=== PATIENT | female | born 1945 | race Caucasian/White ===

== ENCOUNTER 2016-09-16 02:10 | Inpatient (IN) ==
[2016-09-16] MEDS ORDERED: Ondansetron 4 MG/2 ML VIAL IVP ONE ×2 (02:38→05:39)
[2016-09-16] MEDS ORDERED: 0.9 % Sodium Chloride 1,000 ML IVC ONE (02:38)
[2016-09-16] MEDS ORDERED: *HR* Morphine 2 MG/ML SYRINGE IVP ONE (02:38)
[2016-09-16 03:28] LABS: Basophils % 0.3 %; Eosinophils # 0.1 K/mcL (0.0-0.6); Eosinophils % 0.8 %; Hematocrit 40.2 % (35.3-44.9); Hemoglobin 13.7 g/dL (11.5-15.4); Immature Granulocytes % 0.2 % (0-4); Lymphocytes # 1.8 K/mcL (0.6-4.6); Lymphocytes % 20.3 %; Mean Corpuscular HGB Conc 34.1 g/dL (31.6-35.5); Mean Corpuscular Hemoglobin 29.7 pg (28.0-33.3); Mean Platelet Volume 10.9 fL (9.4-12.4); Monocytes # 0.8 K/mcL (0.0-1.3); Monocytes % 9.2 %; Neutrophils # 6.1 K/mcL (1.6-8.9); Platelet Count 153 K/mcL (140-400); Red Blood Count 4.62 M/mcL (3.82-4.97); Segmented Neutrophils % 69.2 %
[2016-09-16] MEDS ORDERED: Tetracaine/Benzocaine/Butamben 200MG/SPRAY (100SPY/BOT) MM ONE (03:39)
[2016-09-16 03:44] LABS: Alanine Aminotransferase 101 Units/L (0-55); Albumin 3.5 g/dL (3.5-5.0); Albumin/Globulin Ratio 0.8 (1.1-2.2); Alkaline Phosphatase 66 Units/L (38-126); Amylase 59 Units/L (25-125); Aspartate Amino Transferase 74 Units/L (5-34); BUN/Creatinine Ratio 20 (6-26); Bilirubin,Direct 0.2 mg/dL (0.0-0.5); Bilirubin,Indirect 0.5 mg/dL (0.0-1.2); Bilirubin,Total 0.7 mg/dL (0.2-1.2); Blood Urea Nitrogen 19 mg/dL (7-20); Calcium 9.6 mg/dL (8.6-10.8); Carbon Dioxide 23 mEq/L (19-29); Chloride 105 mEq/L (98-109); Globulin 4.4 g/dL (2.4-3.5); Glucose 185 mg/dL (70-99); Lipase 25 Units/L (8-78); Osmolality,Calculated 297 (280-300); Potassium 3.9 mEq/L (3.5-4.5); Sodium 140 mEq/L (136-145); Total Protein 7.9 g/dL (6.0-8.3); eGFR For African Americans > 60 (> 60); eGFR For Non-African Americans 57 (> 60)
--- NOTE | 2016-09-16 03:44 | Emergency Department Note ---
Disposition Clinical Impression: Ileus Hematemesis Qualifiers: Nausea presence: with nausea Qualified Code(s): K92.0 - Hematemesis; R11.0 - Nausea GI bleed Qualifiers: GI bleed type/associated pathology: unspecified gastrointestinal hemorrhage type Qualified Code(s): K92.2 - Gastrointestinal hemorrhage, unspecified Disposition: Admitted As Inpatient Condition: Good Time of Disposition: 05:16 General Adult HPI - General Chief complaint: ED Abdominal Pain Stated complaint: belly pain Time Seen by Provider: 09/16/16 02:19 Source: patient Limitations: no limitations Nursing Notes Reviewed: Yes Vital Signs Reviewed: Yes - History of Present Illness HPI Narrative: Patient presents to the emergency room with acute onset of abdominal discomfort. She felt like she had bloating and gas. She has not had resolution of symptoms. She denies ever having any light this in the past. She has not been ill recently. She denies any cough cold congestion fevers or chills. Patient said the pain was getting worse and she decided come to the emergency room. 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: abdomen Radiation: non-radiation Pain Severity: moderate Pain Scale: 8 Quality: sharp, constant Consistency: Improving Improves with: nothing Worsens with: movement Associated symptoms: Reports: nausea/vomiting Treatments Prior to Arrival: none - Related Data Home Medications Medication Instructions Recorded Confirmed Aspirin 81 mg PO DAILY 09/16/16 09/16/16 Calcium Carbonate [Calcium] 500 mg PO DAILY 09/16/16 09/16/16 CloNIDine HCl 0.1 mg PO DAILY 09/16/16 09/16/16 Cyclosporine [Restasis] 1 drop OP DAILY 09/16/16 09/16/16 FLUoxetine HCl [Prozac] 20 mg PO DAILY 09/16/16 09/16/16 GlipiZIDE [Glucotrol] 2.5 mg PO DAILY 09/16/16 09/16/16 Hydrochlorothiazide 25 mg PO DAILY 09/16/16 09/16/16 Metformin HCl [Glucophage Xr] 750 mg PO BID 09/16/16 09/16/16 Metoprolol XL (24 HR) Succ [Toprol 75 mg PO DAILY 09/16/16 09/16/16 Xl] [place]-3/Dha/Epa/Fish Oil [Fish Oil 1,000 mg PO DAILY 09/16/16 09/16/16 1,000 mg Softgel] Potassium Chloride [Klor-Con 10] 10 meq PO DAILY 09/16/16 09/16/16 SUMAtriptan Succinate [Imitrex] 100 mg PO DAILY PRN 09/16/16 09/16/16 SitaGLIPtin [Januvia] 100 mg PO DAILY 09/16/16 09/16/16 Vitamin E Acid Succinate [Vitamin 400 units PO DAILY 09/16/16 09/16/16 E] Previous Rx's Medication Instructions Recorded Pantoprazole [Protonix] 40 mg PO Q12H 30 Days 09/17/16 Sucralfate [Carafate] 1 gm PO QIDAC 30 Days 09/17/16 Allergies Allergy/AdvReac Type Severity Reaction Status Date / Time Amoxicillin AdvReac Nausea Verified 09/16/16 02:13 Oxycodone AdvReac Nausea Verified 09/16/16 02:13 All systems ED: reviewed and negative except as stated. Cardiovascular: Denies: palpitations Respiratory: Denies: cough, dyspnea Gastrointestinal: Reports: abdominal pain, nausea, vomiting. Denies: diarrhea Genitourinary: Denies: dysuria, frequency Past Medical History - Past Medical History Attestation: Yes The following information was validated with the patient. Source: patient Medical history: Reports: atrial fibrillation, diabetes, hyperlipidemia, hypertension, migraine Psychiatric history: Reports: depression - Social History Smoking Status: Never smoker Smokeless Tobacco Status: No Alcohol use: Reports: none Drug use: Reports: none Physical Exam - General Limitations: no limitations General appearance: alert, in no apparent distress - Respiratory Respiratory exam: Present: normal lung sounds bilaterally - Cardiovascular Cardiovascular exam: Present: regular rate, normal rhythm, normal heart sounds - Abdominal Exam Abdominal exam: Present: soft, Non-Tender, normal bowel sounds. Absent: tenderness, distention, guarding, rebound, rigidity, Whiting's sign, Rovsing's sign, tenderness at McBurney's Point Course Course Narrative: Patient seen and examined the time of arrival. See history of present illness. 71-year-old female presents emergency room with onset of abdominal pain. Symptom onset was just prior to coming in. Patient woke up with belly discomfort. Denies any other symptoms prior to these events. No chest pain or shortness of breath no headache vision changes nausea vomiting or diarrhea. No fevers or chills. Pain complaint on presentation his abdominal discomfort.vital signs reviewed on presenation patient is afebile blood pressure is elevated. Patient denies any other medical issues. When she started to think about the last several weeks she has been having some acid reflux and pain in her abdomen when she eats. She has been taking Prilosec at home now to the symptoms. She denies any trauma or injuries. She otherwise is not on any blood thinners. She typically does not take any medication. Patient denies fevers chills nausea vomiting diarrhea chest pain source of breath headache or vision change. Symptoms today include mainly epigastric discomfort and nausea and feeling like she is going to throw up. No other acute issues on physical exam. Belly is not acutely tender. No guarding no rigidity no peritoneal presentation. Lungs are clear heart is regular. Patient is resting in the bed in no acute distress at this time. Labs including lipase and LFTs ordered. Patient had CT imaging of the belly. Chest x-ray and EKG also ordered at this time for thorough evaluation. Patient will be monitored here in the emergency room his symptoms are controlled. Disposition pending workup and treatment course - Reevaluation(s) Reevaluation #1: Patient found to have an ileus with dilation of the proximal small intestine and the stomach. Content is described in the read by the radiologist. At this point patient has no contraindications to nasogastric tube placement. We will place an NG tube at the bedside for decompression of the stomach. Patient is not on a blood thinners and has no history of esophageal varices. Nasogastric tube was placed without any complication. Little bit of bleeding was noted from the left nostril after the event. No acute bleeding or pulsatile bleeding noted. NG tube was placed with no resistance. Dark colored blood and food content was removed approximately 200 mL initially on placement of the NG tube. Concern is noted for possible GI bleed associated with this ileus. NG tube was placed to low intermittent suction. Chest x-ray ordered for confirmation of placement. Protonix drip ordered at that time. Patient is stable we will continue to monitor. Time: 03:40 Reevaluation #2: Patient has had persistent dark colored blood coming from the NG tube. Bleeding around the nostril is faint at this time. Do not feel that the blood that is accumulated in the stomach is from the nasogastric tube. She has no pain at this time. Patient did note again that she had been taking Prilosec over the last several weeks because of burning sensation whenever she ate food. The ileus could have been a incidental finding secondary to buildup of blood inside of her abdomen in the stomach. Consultation was placed out to the on- call surgeon and endoscopist Dr. Shrestha. Reviewed the case and presentation with him. He recommended keeping the patient on nasogastric tube suction along with flushes. Labs are normal at this time. Admission process to be completed and surgery will be brought on as consultation. Patient stable resting comfortably in the bed. Leading is decreasing after multiple flushes of fluid into the stomach. A second hemodynamics are stable. Blood pressure is persistently elevated. Single dose of labetalol used at this time for blood pressure management. We will continue to monitor his admission process is completed Time: 05:13 Reevaluation #3: Patient discussed with the hospitalist Dr. Gustafson for admission. No other recommendations at this time. Patient will be sent to telemetry floor. Vital signs are stable this point. Labetalol given. Blood pressure 162/110 on repeat evaluation. Coming down appropriately. Patient feeling better at this time. NG contents clearing up at this point. Admission process to be completed. Time: 05:34 Vital Signs Temperature 98.0 F 09/16/16 02:13 Pulse Rate 68 09/16/16 02:13 Respiratory Rate 22 09/16/16 02:13 Blood Pressure 213/97 09/16/16 02:13 O2 Sat by Pulse Oximetry 95 09/16/16 02:13 Temperature 98 F 09/17/16 07:46 Pulse Rate 74 09/17/16 07:46 Respiratory Rate 18 09/17/16 07:46 Blood Pressure 169/79 09/17/16 07:46 O2 Sat by Pulse Oximetry 94 L 09/17/16 07:46 Oxygen Delivery Oxygen Delivery Room Air Medical Decision Making - MDM Narrative Medical decision making narrative: Ileus, GI bleed - Medical Records Medical records reviewed: Yes I reviewed the patient's medical records. - Lab Data Lab results reviewed: Yes I reviewed the patient's lab results. Result diagrams: 09/17/16 07:28 09/16/16 02:59 Lab Results 09/16/16 09/16/16 09/16/16 Range/Units 02:59 02:59 02:59 WBC 8.8 (4.3-11.1) K/mcL RBC 4.62 (3.82-4.97) M/mcL Hgb 13.7 (11.5-15.4) g/dL Hct 40.2 (35.3-44.9) % MCV 87.0 (83.0-100.0) fL MCH 29.7 (28.0-33.3) pg MCHC 34.1 (31.6-35.5) g/dL RDW 12.0 (11.5-14.5) % Plt Count 153 (140-400) K/mcL MPV 10.9 (9.4-12.4) fL Immature Gran % 0.2 (0-4) % Seg Neutrophils % 69.2 % Lymphocytes % 20.3 % Monocytes % 9.2 % Eosinophils % 0.8 % Basophils % 0.3 % Neutrophils # 6.1 (1.6-8.9) K/mcL Lymphocytes # 1.8 (0.6-4.6) K/mcL Monocytes # 0.8 (0.0-1.3) K/mcL Eosinophils # 0.1 (0.0-0.6) K/mcL Basophils # 0.0 (0.0-0.2) K/mcL PT (9.4-12.1) Seconds INR APTT (26.0-36.0) Seconds Sodium 140 (136-145) mEq/L Potassium 3.9 (3.5-4.5) mEq/L Chloride 105 (98-109) mEq/L Carbon Dioxide 23 (19-29) mEq/L BUN 19 (7-20) mg/dL Creatinine 0.96 (0.57-1.11) mg/dL Est GFR ( Amer) > 60 (> 60) Est GFR (Non-Af Amer) 57 L (> 60) BUN/Creatinine Ratio 20 (6-26) Glucose 185 H (70-99) mg/dL Calculated Osmolality 297 (280-300) Lactic Acid (0.5-2.2) mmol/L Calcium 9.6 (8.6-10.8) mg/dL Total Bilirubin 0.7 (0.2-1.2) mg/dL Direct Bilirubin 0.2 (0.0-0.5) mg/dL Indirect Bilirubin 0.5 (0.0-1.2) mg/dL AST 74 H (5-34) Units/L ALT 101 H (0-55) Units/L Alkaline Phosphatase 66 (38-126) Units/L Troponin I 0.01 (0-0.03) ng/mL Serum Total Protein 7.9 (6.0-8.3) g/dL Albumin 3.5 (3.5-5.0) g/dL Globulin 4.4 H (2.4-3.5) g/dL Albumin/Globulin Ratio 0.8 L (1.1-2.2) Amylase 59 (25-125) Units/L Lipase 25 (8-78) Units/L Blood Type Antibody Screen 09/16/16 09/16/16 09/16/16 Range/Units 02:59 04:38 05:55 WBC (4.3-11.1) K/mcL RBC (3.82-4.97) M/mcL Hgb (11.5-15.4) g/dL Hct (35.3-44.9) % MCV (83.0-100.0) fL MCH (28.0-33.3) pg MCHC (31.6-35.5) g/dL RDW (11.5-14.5) % Plt Count (140-400) K/mcL MPV (9.4-12.4) fL Immature Gran % (0-4) % Seg Neutrophils % % Lymphocytes % % Monocytes % % Eosinophils % % Basophils % % Neutrophils # (1.6-8.9) K/mcL Lymphocytes # (0.6-4.6) K/mcL Monocytes # (0.0-1.3) K/mcL Eosinophils # (0.0-0.6) K/mcL Basophils # (0.0-0.2) K/mcL PT 10.5 (9.4-12.1) Seconds INR 1.0 APTT 27.7 (26.0-36.0) Seconds Sodium (136-145) mEq/L Potassium (3.5-4.5) mEq/L Chloride (98-109) mEq/L Carbon Dioxide (19-29) mEq/L BUN (7-20) mg/dL Creatinine (0.57-1.11) mg/dL Est GFR ( Amer) (> 60) Est GFR (Non-Af Amer) (> 60) BUN/Creatinine Ratio (6-26) Glucose (70-99) mg/dL Calculated Osmolality (280-300) Lactic Acid 1.1 (0.5-2.2) mmol/L Calcium (8.6-10.8) mg/dL Total Bilirubin (0.2-1.2) mg/dL Direct Bilirubin (0.0-0.5) mg/dL Indirect Bilirubin (0.0-1.2) mg/dL AST (5-34) Units/L ALT (0-55) Units/L Alkaline Phosphatase (38-126) Units/L Troponin I (0-0.03) ng/mL Serum Total Protein (6.0-8.3) g/dL Albumin (3.5-5.0) g/dL Globulin (2.4-3.5) g/dL Albumin/Globulin Ratio (1.1-2.2) Amylase (25-125) Units/L Lipase (8-78) Units/L Blood Type A POSITIVE Antibody Screen NEGATIVE - Radiology Data Radiology results reviewed: Yes I reviewed the patient's radiology results. CT imaging confirms ileus with no acute transition point. Stomach is distended with what appears to be food content. Chest x-ray confirms no acute intrapulmonary D issue. Repeat chest x-ray for NG tube placement shows stable placement past the diaphragm. - EKG Data EKG #1 EKG attestation: Yes I reviewed and interpreted this EKG. EKG shows normal: sinus rhythm, axis, intervals, QRS complexes Rate: normal Rhythm: NSR Rogers/QRS: normal When compared to previous EKG there are: no significant changes Interpretation: no acute changes (Intervals appear normal. Comparison EKG from 06/17/98. Mild changes but no acute ST segment elevation or reciprocal changes at this time) Critical Care Time Critical Care Time: Yes Total Critical Care Time: 45 Attestation: Independent of procedures and medical intervention
[2016-09-16] MEDS ORDERED: Pantoprazole 40 MG VIAL IVP ONE (03:56)
[2016-09-16] MEDS ORDERED: *HR* Labetalol 20 MG/4 ML SYRINGE IVP ONE (05:04)
[2016-09-16 05:10] LABS: Prothrombin Time 10.5 Seconds (9.4-12.1)
[2016-09-16 05:12] LABS: Activated Partial Thrombo Time 27.7 Seconds (26.0-36.0)
[2016-09-16] MEDS: Pantoprazole 40 MG in 0.9 % Sodium Chloride Mini Bag 100 ML IVC SCH ×3 (05:27→14:38)
[2016-09-16] MEDS ORDERED: Ondansetron 4 MG/2 ML VIAL ONE (05:39)
--- NOTE | 2016-09-16 06:16 | Internal Med History&Physical ---
Date of Encounter: 09/16/16 Time of Encounter: 06:08 Assessment and Plan (1) Ileus Current visit: Yes Status: Acute Patient presented due to abdominal pain, clinically has improved, however patient has a nasogastric tube in place connected to suction. In light of suction of bloody content, we will monitor hemoglobin accordingly. Abd CT repor noted. Will not use heparin for DVT prophylaxis. The on-call surgeon has been notified about the case by the emergency department staff, we will place a consult for further evaluation and recommendations. Continue with IV PPIs. NPO. (2) Type 2 diabetes mellitus Current visit: Yes Status: Acute Monitor fingerstick. RISS. Qualifiers: Diabetes mellitus complication status: with unspecified complications Diabetes mellitus keno terminal operator insulin use: without keno terminal operator use Qualified Code( s): E11.8 - Type 2 diabetes mellitus with unspecified complications (3) Uncontrolled hypertension Current visit: Yes Status: Acute Continue monitoring the patient closely. IV medications for now in light of patient being nothing by mouth. Internal Medicine - H&P: HPI Chief complaint: abd pain Admitted From: Emergency Dept Plans for Post Hospital Care: Home History of present illness: Ms. Fields is a 71 year old female with past medical history of type 2 diabetes , arrhythmia, hypertension. Presented to emergency department complaining of abdominal pain which started 2 hours prior to arrival to the ED, epigastric which she describes as bloating associated with nausea, she ate pizza last night. She had 2 bowel movements earlier today without blood. Patient denies chills, fever, shortness of breath, loss of consciousness, rash, trauma. Abdominal pain got worse and patient was evaluated in the emergency department. Upon arrival the blood pressure was 215/88, heart rate 71, afebrile. Initial labs revealed a hemoglobin of 13.7, platelet count 153,000. Biochemistry revealed a sodium of 140, potassium 3.9, chloride 105, bicarbonate 23, BUN/ creatinine 19, creatinine 0.96, glucose 185. CT of the abdomen revealed enteritis/ileus. Chest x-ray was concerning for left sided atelectasis or pneumonia. Amylase 59, lipase 25, lactic acid 1.1. A nasogastric every was placed in the emergency department. Dark colored blood and food content was removed approximately 200 mL initially on placement of the NG tube. The emergency department staff Discussed the case with the surgeon marine transport professionals, recommendation was to admit the patient. I saw this patient in the ED holding area, upon my encounter with the patient she was feeling much better, denied abdominal pain. She did receive a dose of labetalol IV in the ED. Past Med Surg Social Fam HX - Past Medical History Medical history: atrial fibrillation, diabetes, hyperlipidemia, hypertension, migraine Psychiatric history: depression - Social History Smoking Status: Never smoker Smokeless Tobacco Status: No Alcohol use: none Drug use: none Internal Medicine - H&P: Meds Allergies Amoxicillin Adverse Reaction (Verified 09/16/16 02:13) Nausea Oxycodone Adverse Reaction (Verified 09/16/16 02:13) Nausea All Systems PM: A 10-system review of systems was performed and is negative for pertinent findings except as documented above in the HPI. - Constitutional Constitutional: as per HPI, no chills, no fever(s), no night sweats - EENT Eyes: as per HPI, no change in vision, no discharge, no pain, no photophobia Ears: as per HPI, no ear discharge, no ear pain, no tinnitus Nose, mouth and throat: as per HPI, no dysphagia, no nasal discharge, no neck pain, no sore throat - Breasts Breasts: as per HPI - Cardiovascular Cardiovascular ROS IM: as per HPI, no chest pain, no diaphoresis, no dyspnea, no lightheadedness, no palpitations, no syncope - Respiratory Respiratory: as per HPI, no cough, no dyspnea, no wheezing, no excessive phlegm production - Gastrointestinal Gastrointestinal: as per HPI, abdominal pain, bloating, no diarrhea, no hematemesis, no hematochezia, no melena, no nausea, no vomiting - Genitourinary Genitourinary: as per HPI, no change in urinary stream, no dysuria, no flank pain, no hematuria Menstruation: as per HPI - Musculoskeletal Musculoskeletal ROS IM: as per HPI, no numbness, no tingling - Integumentary Integumentary IM: as per HPI, no rash, no unusual bruising - Neurological Neurological ROS: as per HPI, no confusion, no convulsions, no focal weakness, no numbness, no tingling, no tremor(s) - Psychiatric Psychiatric: as per HPI - Endocrine Endocrine IM: as per HPI - Hematologic/Lymphatic Hematologic/Lymphatic: as per HPI, no easy bruising - Allergic/Immunologic Allergic/Immunologic: as per HPI - Constitutional Vitals: Temp Pulse Resp BP Pulse Ox 98.0 F 74 0 0/0 95 09/16/16 02:13 09/16/16 06:00 09/16/16 06:02 09/16/16 06:02 09/16/16 02:13 General appearance: Present: cooperative, A&O X 3, pleasant, no acute distress Exam: NG tube placed, connected to suction. - Head Head exam: Present: atraumatic, normocephalic - Eye Eye exam: Present: PERRL, conjuntiva pink, sclera anicteric Pupils: Present: PERRL - Neck Neck exam general surgery: Present: supple, trachea midline. Absent: lymphadenopathy - Respiratory Respiratory exam: Present: CTAB. Absent: accessory muscle use, rales, rhonchi, wheezes - Cardiovascular Cardiovascular exam: Present: RRR, +S1, +S2. Absent: diastolic murmur, gallop, rubs, systolic murmur - GI/Abdominal GI/Abdominal exam: Present: normal bowel sounds, soft, no peritoneal signs. Absent: distended, tenderness - Extremities Exam Extremities exam: Present: warm, radial pulses palpable and symetrical. Absent : calf tenderness, cyanotic, pedal edema - Neurological Exam Neurological exam: Present: CN II-XII intact, oriented X3, no focal deficits. Absent: pronater drift, facial droop, speech deficit - Skin Skin exam: Present: dry, intact Internal Med - H&P Results - Labs CBC & Chem 7: 09/16/16 02:59 09/16/16 02:59
[2016-09-16] MEDS ORDERED: *HR* Morphine 2 MG/ML SYRINGE IVP PRN (06:23)
[2016-09-16] MEDS ORDERED: Naloxone 0.4 MG/ML INJ IVP PRN (06:23)
[2016-09-16] MEDS ORDERED: Dextrose Gel 15 GM PO PRN ×2 (06:26)
[2016-09-16] MEDS ORDERED: *HR* Dextrose 50 % in Water (Syg) 50 ML SYRINGE IVP PRN (06:26)
[2016-09-16] MEDS ORDERED: *HR* Metoprolol 5 MG/5 ML VIAL IVP PRN (06:29)
[2016-09-16] MEDS: 0.9 % Sodium Chloride 1,000 ML IVC SCH ×2 (07:01→14:45)
[2016-09-16] MEDS: Insulin LISPRO 300 UNITS/3 ML VIAL SQ SCH ×3 (07:04→17:38)
[2016-09-16] MEDS ORDERED: Chloraseptic Spray 177 ML BOTTLE MM PRN (11:38)
--- NOTE | 2016-09-16 14:56 | Event Note ---
<Loren Kennedy - Last Filed: 09/16/16 14:57> Date of Encounter: 09/16/16 Time of Encounter: 14:41 S: Patient seen and examined this morning. Patient admitted overnight for acute midabdominal pain with nausea, found on CT abdomen to have dilated proximal to mid small bowel with dilation of the stomach. Insertion of nasogastric tube with return of blood. Concern for possiblegastric ulcer given patient had been having dyspepsia in week prior to arrival. Emergency room physician spoke to Dr. Shrestha in consult for endoscopy. Patient was started on protonix drip and admitted to hospital with surgery consult. This morning, patient states her abdominal pain is much improved. She is complaining of some irritation at the back of her throat from the presence of the nasogastric tube. She reports she is passing gas however has not had a bowel movement. She denies any current abdominal pain. She has no acute concerns or complaints at this time. O: 98.7F HR 82 RR 18 BP: 174/77 SpO2: 90% on room air Constitutional: alert, oriented, answers questions appropriately HEENT: normocephalic, atroumatic, NG tube in place, mucous membranes moist, eye normal, trachea midline Heart: RRR, S1, S2, no murmur/rub/gallop Lungs: CTAB, no wheezes/rales/rhonchi Abdomen: soft, non tender, non distended, hypoactive bowel sounds, no guarding/ rigidity/rebound Extremities: normal capillary refill, no pedal edema A/P: 1. ileus - continue NG tube to low intermittent suction - CT abdomen with mild dilation of proximal to mid small bowel as well as stomach - continue NPO for now - Surgery consulted, appreciate input and expertise 2. hematochezia - insertion of NG tube in ER with return of blood - will change protonix drip to protonix IV BID given equivalency - surgery consulted, as above, will await further recommendations <Raghu Gee - Last Filed: 09/16/16 16:04> Ms. Fields was admitted this AM with presumed acute gastric ulcer. NG in now. Seen by surgery - appreciate input. Exam Alert. Abd nontender Plan per surgery - D/C NG. Advance diet PPI
--- NOTE | 2016-09-16 16:28 | General Surgery Consult Note ---
<Kamini Camacho - Last Filed: 09/16/16 16:23> Date of Encounter: 09/16/16 Time of Encounter: 15:00 Assessment and Plan (1) Hematemesis Current Visit: Yes Status: Acute No evidence of ongoing bleeding Remove NG tube Advance to clear liquids and then to regular if tolerated (avoid citrus and tomato based foods) PPI therapy BID Carafate QID Monitor Hgb/Hct Would consider EGD if patient has drop in hgb with evidence of ongoing GI bleeding Qualifiers: Nausea presence: with nausea Qualified Code(s): K92.0 - Hematemesis; R11.0 - Nausea History of Present Illness Consult date: 09/16/16 Requesting physician: Oli Gray History of present illness: Mrs. Fields is a very pleasant 71 year old female who presented to the ED with complaints of generalized, central abdominal pain. She reports that she had sudden onset last evening. She denies any aggrevating or alleviating factors. She admits to bloating. Admits to nausea prior to arrival and vomiting of large amounts of bright red blood in the ED after NG tube placement. She denies any radiating factors. She has never had pain like this in the past. She states that she felt like she either needed to belch of pass flatus but could not for at least 2 hours prior to presenting to the ED. She denies fevers/chills. She does report constipation over the past week and her last BM was yesterday. She states that she typically has a bowel movement daily. Denies any weight loss. Denies any shortness of breath or chest pains. Denies any difficulty with urination. We have been asked to see and evaluate the patient for her abnormal CT scan and hematemesis. She does admit to taking asa daily for many years (81mg ) and has been taking aleve and ibprofen daily for the past week for an abscessed tooth. Past Med Surg Social Fam HX - Past Medical History Source: patient, old records reviewed Medical history: atrial fibrillation, diabetes, hyperlipidemia, hypertension, liver disease (fatty liver ), migraine Psychiatric history: depression - Past Surgical History Surgical History: breast surgery (lumpectomy), RA/BSO, other (D&C, removal of right arm lipoma, colonoscopy 2007) - Social History Smoking Status: Never smoker Smokeless Tobacco Status: No Alcohol use: none Drug use: none Current living situation: Home - Independent Activity Level: Independent ambulation - Family History Father Living Status: Hx Family Neurologic Disorders: Yes (CVA) Mother Living Status: Hx Family Neurologic Disorders: Yes (CVA) Medications and Allergies Aspirin 81 mg PO DAILY 09/16/16 [History] Calcium Carbonate [Calcium] 500 mg PO DAILY 09/16/16 [History] CloNIDine HCl 0.1 mg PO DAILY 09/16/16 [History] Cyclosporine [Restasis] 1 drop OP DAILY 09/16/16 [History] FLUoxetine HCl [PROzac] 20 mg PO DAILY 09/16/16 [History] GlipiZIDE [Glucotrol] 2.5 mg PO DAILY 09/16/16 [History] Hydrochlorothiazide 25 mg PO DAILY 09/16/16 [History] Metformin HCl [Glucophage Xr] 750 mg PO BID 09/16/16 [History] Metoprolol XL (24 HR) Succ [Toprol XL] 75 mg PO DAILY 09/16/16 [History] [place]-3/Dha/Epa/Fish Oil [Fish Oil 1,000 mg Softgel] 1,000 mg PO DAILY 09/16/16 [History] Potassium Chloride [Klor-Con 10] 10 meq PO DAILY 09/16/16 [History] SUMAtriptan Succinate [Imitrex] 100 mg PO DAILY PRN 09/16/16 [History] SitaGLIPtin [Januvia] 100 mg PO DAILY 09/16/16 [History] Vitamin E Acid Succinate [Vitamin E] 400 units PO DAILY 09/16/16 [History] Allergies Amoxicillin Adverse Reaction (Verified 09/16/16 02:13) Nausea Oxycodone Adverse Reaction (Verified 09/16/16 02:13) Nausea Review of Systems All systems PM: reviewed and no additional remarkable complaints except as stated (in the HPI) All systems PM: A 10-system review of systems was performed and is negative for pertinent findings except as documented above in the HPI. General Surgery Exam Initial Vital Signs Temp Pulse Resp BP Pulse Ox 98.0 F 68 22 213/97 95 09/16/16 02:13 09/16/16 02:13 09/16/16 02:13 09/16/16 02:13 09/16/16 02:13 - General physical appearance well developed, well nourished, no distress, no pain - Eyes PERRL, normal ocular movement - ENT normal mucosa, atraumatic, normocephalic - Neck trachea midline - Respiratory normal expansion, normal respiratory effort, clear to auscultation - Cardiovascular Cardiovascular exam: Present: RRR - Abdomen Abdomen general surgery: Present: bowel sounds present, soft, non tender, wound (NG tube to LIWS with bilious drainage without ongoing bleeding noted) - Integumentary Integumentary general surgery: Present: warm and dry - Neurologic Present: CN 2-12 grossly intact - Musculoskeletal Present: normal gait, normal posture - Psychiatric Psychiatric general surgery: Present: appropriate, oriented to person, oriented to place, oriented to time, speech is normal, memory intact Exam Initial Vital Signs Temp Pulse Resp BP Pulse Ox 98.0 F 68 22 213/97 95 09/16/16 02:13 09/16/16 02:13 09/16/16 02:13 09/16/16 02:13 09/16/16 02:13 Results - Labs 09/16/16 10:29 09/16/16 02:59 Abnormal lab results Est GFR (Non-Af Amer) 57 (> 60) L 09/16/16 02:59 Glucose 185 mg/dL (70-99) H 09/16/16 02:59 AST 74 Units/L (5-34) H 09/16/16 02:59 ALT 101 Units/L (0-55) H 09/16/16 02:59 Globulin 4.4 g/dL (2.4-3.5) H 09/16/16 02:59 Albumin/Globulin Ratio 0.8 (1.1-2.2) L 09/16/16 02:59 All other labs normal. - Imaging CT scan - abdomen: report reviewed CT scan - pelvis: report reviewed Additional studies: Abdomen/Pelvis CT 09/16/16 02:38 IMPRESSION: Findings most likely represent enteritis/ileus. D/ / Jaiden Adam MD / Jaiden Adam MD Interpreting Provider: Jaiden Adam MD Chest X-Ray 09/16/16 03:55 IMPRESSION: 1. The enteric tube is in good position in the stomach. 2. Left basilar atelectasis or pneumonia. D/ / Jaiden Adam MD / Jaiden Adam MD Interpreting Provider: Jaiden Adam MD Consult Discharge Plan - Plan Referrals: Breezy Cason MD [Primary Care Provider] - (Office already closed today , will have to call at discharge or on Monday morning) - Attending Attestation I examined this patient and my medical decision-making was reviewed with the CHARGE OPERATOR/PA/Advanced Practice Nurse/Resident Physician. I agree with the documented findings, disposition and treatment plan as described except to the extent set forth below. <Rickey Shrestha - Last Filed: 09/16/16 20:01> Date of Encounter: 09/16/16 Review of Systems All systems PM: A 10-system review of systems was performed and is negative for pertinent findings except as documented above in the HPI. General Surgery Exam Initial Vital Signs Temp Pulse Resp BP Pulse Ox 98.0 F 68 22 213/97 95 09/16/16 02:13 09/16/16 02:13 09/16/16 02:13 09/16/16 02:13 09/16/16 02:13 Exam Initial Vital Signs Temp Pulse Resp BP Pulse Ox 98.0 F 68 22 213/97 95 09/16/16 02:13 09/16/16 02:13 09/16/16 02:13 09/16/16 02:13 09/16/16 02:13 Results - Labs 09/16/16 17:50 09/16/16 02:59 Abnormal lab results Est GFR (Non-Af Amer) 57 (> 60) L 09/16/16 02:59 Glucose 185 mg/dL (70-99) H 09/16/16 02:59 AST 74 Units/L (5-34) H 09/16/16 02:59 ALT 101 Units/L (0-55) H 09/16/16 02:59 Globulin 4.4 g/dL (2.4-3.5) H 09/16/16 02:59 Albumin/Globulin Ratio 0.8 (1.1-2.2) L 09/16/16 02:59 All other labs normal. - Attending Attestation The patient is seen and evaluated with the clinical nurse practitioner. Her abdominal examination is totally negative. There is no further nasogastric tube. We will remove the nasogastric tube and observe her clinical course. She will only require upper endoscopy if there is further bleeding. Rickey Shrestha MD FACS
[2016-09-16] MEDS: Sucralfate 1 GM TABLET PO SCH ×2 (17:01→21:06)
[2016-09-16] MEDS ORDERED: Pantoprazole 40 MG VIAL IVP SCH (18:00)
[2016-09-16] MEDS: Acetaminophen 325 MG TABLET PO PRN (18:09)
[2016-09-16] MEDS: Pantoprazole 40 MG VIAL IVP SCH (21:07)
[2016-09-17] MEDS: Sucralfate 1 GM TABLET PO SCH ×2 (07:40→11:27)
[2016-09-17] MEDS: Acetaminophen 325 MG TABLET PO PRN (07:40)
[2016-09-17 07:47] VITALS: BP 169/79
[2016-09-17 07:49] LABS: Hematocrit 35.3 % (35.3-44.9); Hemoglobin 11.5 g/dL (11.5-15.4)
[2016-09-17] MEDS: Insulin LISPRO 300 UNITS/3 ML VIAL SQ SCH ×2 (08:37→11:57)
[2016-09-17] MEDS: Pantoprazole 40 MG VIAL IVP SCH (08:39)
--- NOTE | 2016-09-17 09:50 | General Surgery Progress Note ---
Date of Encounter: 09/17/16 Time of Encounter: 09:47 - Assessment and Plan (1) Hematemesis Current Visit: Yes Status: Acute I reviewed the patient's laboratory studies and note that although the Hgb level did decrease, it is still within normal parameters. All of her CBC values are normal. I agree that the patient does not require an EGD during this admission and agree with discharge home once tolerating solid food. She can follow up with Dr. Shrestha as an outpatient for further evaluation. Will sign off; thank you. Qualifiers: Nausea presence: with nausea Qualified Code(s): K92.0 - Hematemesis; R11.0 - Nausea Subjective Patient reports: no new complaints, other (Patient denies any nausea or vomiting. Denies abdominal pain. Positive flatus.) Objective Vital Signs - Last 8 Hours Temp Pulse Resp BP Pulse Ox 09/17/16 07:46 98 F 74 18 169/79 94 L 09/17/16 05:04 98.7 F 76 18 131/65 93 L Intake and Output 09/16/16 09/17/16 09/17/16 23:59 07:59 15:59 Intake Total 0 / 0 0 / 0 Output Total 0 / 0 Balance 0 / 0 0 / 0 Intake: Oral 0 / 0 0 / 0 Output: Urine 0 / 0 Other: # Voids 1 Weight 89.3 kg Blood Glucose* 138 143 Patient Weight 09/17/16 23:59 Weight 89.3 kg - General physical appearance well developed, well nourished, no distress - Abdomen Abdomen: Present: bowel sounds present, soft, non tender (No masses palpated) - Labs 09/17/16 07:28 09/16/16 02:59 Consult Discharge Plan - Plan Referrals: Breezy Cason MD [Primary Care Provider] - (Office already closed today , will have to call at discharge or on Monday)
--- NOTE | 2016-09-17 11:05 | Internal Med Progress Note ---
Date of Encounter: 09/17/16 Time of Encounter: 10:47 - Subjective Interval history: Patient seen and examined this morning. Patient admitted for abdominal pain with evidence of proximal to mid small bowel dilatation on CT abdomen/pelvis. In R there was blood observed after insertion of NG tube. Due to concerns for possible gastric ulcer with bleed patient was admitted. - Constitutional Vitals: Temp Pulse Resp BP Pulse Ox 98 F 74 18 169/79 94 L 09/17/16 07:46 09/17/16 07:46 09/17/16 07:46 09/17/16 07:46 09/17/16 07:46 General appearance: Present: cooperative, A&O X 3, pleasant, no acute distress Internal Medicine: Result - Labs CBC & Chem 7: 09/17/16 07:28 09/16/16 02:59 Labs: Short CBC 09/16/16 09/16/16 09/17/16 Range/Units 10:29 17:50 07:28 Hgb 12.1 D 11.6 11.5 (11.5-15.4) g/dL Hct 35.3 (35.3-44.9) % - ABG Interpretation ABG results: PT/INR, D-dimer PT 10.5 Seconds (9.4-12.1) 09/16/16 02:59 Consult Discharge Plan - Plan Referrals: Breezy Cason MD [Primary Care Provider] - (Office already closed today , will have to call at discharge or on Monday)
--- NOTE | 2016-09-17 11:29 | Discharge Summary ---
<Loren Kennedy - Last Filed: 09/17/16 14:10> Date of Encounter: 09/17/16 Time of Encounter: 11:11 - Discharge Diagnosis (1) Ileus Priority: Primary Status: Acute Comments: Patient presented with sudden onset abdominal pain and was found to have evidence of proximal and mid small bowel dilation without definitive transition point. Patient had NG tube placed. Surgery was consulted. evaluation by surgery, remved NG tube and allowed patient to eat. Patient was able to tolerate diet prior to discharge with no vomiting and abdominal pain had resolved. (2) Hematemesis Priority: Primary Status: Acute Comments: Patient has return of blood after insertion of nasogastric tube. NG tube flushed and watched with no further blood observed. Patient initially placed on protonix drip and changed to protonix IV BID. Surgery consulted, patient had been taking alleve and ibuprofen prior to arrival in addition to aspirin. Surgery did not recommend a ED at this time. Patient was able to tolerate food with no difficulty. Should follow up with surgery as outpatient. Patient was discharged with oral protonix BID in addition to carafate four times daily. Qualifiers: Nausea presence: with nausea Qualified Code(s): K92.0 - Hematemesis; R11.0 - Nausea (3) Type 2 diabetes mellitus Priority: Secondary Status: Acute Comments: Stable. Qualifiers: Diabetes mellitus complication status: with unspecified complications Diabetes mellitus residential insulin use: without termite renewal inspector use Qualified Code( s): E11.8 - Type 2 diabetes mellitus with unspecified complications - Discharge Medications Prescriptions: Pantoprazole [Protonix] 40 mg PO Q12H 30 Days Sucralfate [Carafate] 1 gm PO QIDAC 30 Days Home Medications: Aspirin 81 mg PO DAILY 09/16/16 [History] Calcium Carbonate [Calcium] 500 mg PO DAILY 09/16/16 [History] CloNIDine HCl 0.1 mg PO DAILY 09/16/16 [History] Cyclosporine [Restasis] 1 drop OP DAILY 09/16/16 [History] FLUoxetine HCl [Prozac] 20 mg PO DAILY 09/16/16 [History] GlipiZIDE [Glucotrol] 2.5 mg PO DAILY 09/16/16 [History] Hydrochlorothiazide 25 mg PO DAILY 09/16/16 [History] Metformin HCl [Glucophage Xr] 750 mg PO BID 09/16/16 [History] Metoprolol XL (24 HR) Succ [Toprol Xl] 75 mg PO DAILY 09/16/16 [History] [place]-3/Dha/Epa/Fish Oil [Fish Oil 1,000 mg Softgel] 1,000 mg PO DAILY 09/16/16 [History] Potassium Chloride [Klor-Con 10] 10 meq PO DAILY 09/16/16 [History] SUMAtriptan Succinate [Imitrex] 100 mg PO DAILY PRN 09/16/16 [History] SitaGLIPtin [Januvia] 100 mg PO DAILY 09/16/16 [History] Vitamin E Acid Succinate [Vitamin E] 400 units PO DAILY 09/16/16 [History] Pantoprazole [Protonix] 40 mg PO Q12H 30 Days 09/17/16 [Rx] Sucralfate [Carafate] 1 gm PO QIDAC 30 Days 09/17/16 [Rx] Allergies/Adverse Reactions: Allergies Amoxicillin Adverse Reaction (Verified 09/16/16 02:13) Nausea Oxycodone Adverse Reaction (Verified 09/16/16 02:13) Nausea Procedures/tests Complete & Pending: Procedures Performed prior 72 hours Category Date Time Status ECG 12 lead ECG [ECG] Routine Y 09/16/16 02:20 Completed Date of admission: 09/16/16 06:23 Primary care physician: Breezy Cason MD Consults: 09/16/16 06:27 Consult to Surgery [CONS] Routine Consulting Provider: [facility] Reason for Consult: ileus Call Completed: No Discharging clinician: Raghu Gee Anticipated date of discharge: 09/17/16 - Patient Status Disposition: Home, Self-Care Condition: Good Functional capacity at discharge: independent ambulation Overall status at discharge: patient is back to baseline - Discharge Instructions Instructions: Diabetes Mellitus Type 2 in Adults (DC), Chronic Hypertension (DC ) Follow Up With: Breezy Cason MD [Primary Care Provider] - (Office already closed today , will have to call at discharge or on Monday morning) - Diet and Activity Activity: increase activity as tolerated Diet: advance to your usual diet Interval History: Patient presented to ER with acute onset of mid abdominal pain. On evaluation in the ER, a CT was performed showing proximal and mid bowel dilation with no transition point. She had a NG tube placed with return of blood and food. NG tube was flushed with no further blood return. Patient was placed on protonix drip. Following morning, patient reported resolution of abdominal pain and had no further blood in NG tube. Surgery was consulted, removed NG tube and added carafate. Due to use of alleve and ibuprofen in week prior to arrival on top of daily aspirin, surgery did not recommend an EGD. Patiet was recommended to follow up further outpatient. Patient was switched to protonix oral BID, added carafate. She was able to tolerate oral intake prior to discharge. She was discharged home in stable condition. She should follow up with her primary care physician in 3-5 days. Hospital course: Ms. Fields is a 71 year old female - Time Spent with Patient Total time spent providing and/or coordinating discharge services: - Constitutional Vitals: Temp Pulse Resp BP Pulse Ox 98 F 74 18 169/79 94 L 09/17/16 07:46 09/17/16 07:46 09/17/16 07:46 09/17/16 07:46 09/17/16 07:46 General appearance: Present: cooperative, A&O X 3, pleasant, no acute distress - Head Head exam: Present: atraumatic, normocephalic - Eye Eye exam: Present: normal appearance. Absent: conjunctival injection - ENT ENT exam: Present: mucous membranes moist, normal oropharynx - Neck Neck exam general surgery: Present: supple, trachea midline - Respiratory Respiratory exam: Present: CTAB. Absent: rales, rhonchi, stridor, wheezes - Cardiovascular Cardiovascular exam: Present: RRR, +S1, +S2. Absent: clicks, diastolic murmur, gallop, rubs, systolic murmur - GI/Abdominal GI/Abdominal exam: Present: normal bowel sounds, soft. Absent: distended, guarding, rebound, rigid, tenderness - Extremities Exam Extremities exam: Present: normal capillary refill. Absent: pedal edema <Raghu Gee - Last Filed: 09/17/16 17:16> - Discharge Diagnosis (1) Hematemesis Status: Acute Qualifiers: Nausea presence: with nausea Qualified Code(s): K92.0 - Hematemesis; R11.0 - Nausea (2) GI bleed Priority: Primary Status: Suspected Qualifiers: GI bleed type/associated pathology: gastric ulcer Qualified Code(s): K25.4 - Chronic or unspecified gastric ulcer with hemorrhage (3) Ileus Status: Acute (4) Type 2 diabetes mellitus Status: Acute Qualifiers: Diabetes mellitus complication status: with unspecified complications Diabetes mellitus termite renewal inspector insulin use: without termite renewal inspector use Qualified Code( s): E11.8 - Type 2 diabetes mellitus with unspecified complications (5) Uncontrolled hypertension Priority: Secondary Status: Acute Procedures/tests Complete & Pending: Procedures Performed prior 72 hours Category Date Time Status ECG 12 lead ECG [ECG] Routine Y 09/16/16 02:20 Completed Date of admission: 09/16/16 06:23 Primary care physician: Breezy Cason MD Consults: 09/16/16 06:27 Consult to Surgery [CONS] Routine Consulting Provider: [facility] Reason for Consult: ileus Call Completed: No Hospital course: Ms. Fields is a 71 year old female - Time Spent with Patient Total time spent providing and/or coordinating discharge services: 32min - Constitutional Vitals: Temp Pulse Resp BP Pulse Ox 98 F 74 18 169/79 94 L 09/17/16 07:46 09/17/16 07:46 09/17/16 07:46 09/17/16 07:46 09/17/16 07:46 - Attending Attestation I examined this patient and my medical decision-making was reviewed with the Resident Physician on 09/17/16. I agree with the documented findings, disposition and treatment plan as described except to the extent set forth below. Ms. Fields is feeling well. She is tolerating a diet. She is afebrile with stable vitals and is ready to go home. Exam Alert. Comfortable Heart reg No wheeze Abd nontender Plan D/C home today She improved very quickly and faster than expected
[2016-09-17] MEDS ORDERED: Insulin LISPRO 300 UNITS/3 ML VIAL SQ SCH (21:00)
--- NOTE | 2016-09-18 07:35 | Electrocardiograph Report ---
[address] [place] [address] Test Date: 2016-09-16 Pat Name: Dionna Fields Department: 102 Room: 2A38 Gender: F Admitting Counselor: Mauricio : 1945 Requested By: Raghu Gee Order Number: [id number] Reading MD: Venkat Hedrick MD Measurements Intervals [place] Rate: 68 P: 40 KS: 155 QRS: 17 QRSD: 86 T: 45 QT: 387 QTc: 404 Interpretive Statements SINUS RHYTHM POSSIBLE ANTERIOR MYOCARDIAL INFARCTION, PROBABLY OLD BASELINE ARTIFACT Electronically Signed On 09-18-2016 7:34:17 EDT by Venkat Hedrick MD
== END 2016-09-17 12:34 | disposition home or self-care (01) | DRG 388 ==
LOC: 2ANU 02:10 → EMEROO 02:10 → 2ANU 06:15
PROVIDERS: ADMIT Internal Medicine; ATTEND Internal Medicine